=== PATIENT | female | born 1990 | race Caucasian/White ===

== ENCOUNTER 2016-05-03 15:48 | Emergency (ER) | payer OTHER ==
[~2016-05-03] VITALS: Ht 157.5 cm; Wt 61.2 kg
[2016-05-03 16:20] LABS: ABSOLUTE BASOPHIL COUNT 0 /CUMM (0.0-0.2); ABSOLUTE EOSINOPHIL COUNT 0.1 /CUMM (0.0-0.7); ABSOLUTE LYMPH COUNT 2.6 /CUMM (1.2-3.4); ABSOLUTE MONOCYTE COUNT 0.4 /CUMM (0.10-0.60); BASOPHIL % 0.4 % (0.0-2.0); EOSINOPHIL % 0.9 % (0-5); GRANULOCYTE % 65.4 % (42.2-75.2); HEMATOCRIT 44.9 % (37-47); MEAN CORPUSCULAR HGB 31.4 PG (27.0-31.0); MEAN CORPUSCULAR HGB CONC 34.1 G/DL (33.0-37.0); MEAN CORPUSCULAR VOLUME 91.9 FL (81.0-99.0); PLATELET COUNT 318 /CUMM (130-400); RED BLOOD CELL CT 4.88 /CUMM (4.20-5.40); WHITE BLOOD CELL COUNT 9.2 /CUMM (4.8-10.8)
--- NOTE | 2016-05-03 16:54 | ED GI/GU/ABDOMINAL COMPLAINT ---
History of Present Illness General Chief Complaint: Abdominal Pain/Flank Pain Stated Complaint: ABD PAIN,LATE ON MENSTRUAL,HX ECTOPIC Source: patient, family, old records Exam Limitations: no limitations Vital Signs & Intake/Output Vital Signs & Intake/Output Vital Signs Date Time Temp Pulse Resp B/P Pulse O2 O2 Flow FiO2 Ox Delivery Rate 05/03 1557 97.2 76 18 117/79 100 Room Air Allergies Coded Allergies: No Known Allergies (05/03/16) Reconcile Medications No Known Home Medications Triage Note: PT TO ED FOR PELVIC CRAMPING, REPORTS SHE IS CURRENTLY 9 DAYS LATE FOR HER PERIOD, TOOK TWO TESTS WHICH CAME BACK NEGATIVE (MOST RECENT ONE DAY). HX OF ECTOPIC IN 2015. Triage Nurses Notes Reviewed? yes ? n Is pt currently ? No HPI: Patient presents with right adnexal and suprapubic cramping that radiates back to past 5 days. The symptoms are constant. There are no activating or mitigating factors. Patient states that she is one week late on her menstrual period. She took a home test twice and they were both negative. Patient denies any nausea or vomiting. Patient does have a history of an ectopic 2 years ago. She rates the cramps as 6 out of 10. She denies any vaginal bleeding but has noticed a thin white vaginal discharge.. There is no dysuria. There is no diarrhea. Past History Travel History Traveled to [place] past 21 day No Medical History Any Pertinent Medical History? 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 No Review of Systems Review of Systems Constitutional: Reports: no symptoms. EENTM: Reports: no symptoms. Respiratory: Reports: no symptoms. Cardiovascular: Reports: no symptoms. GI: Reports: see HPI, abdominal pain. Genitourinary: Reports: no symptoms. Musculoskeletal: Reports: no symptoms. Skin: Reports: no symptoms. Neurological/Psychological: Reports: no symptoms. Hematologic/Endocrine: Reports: no symptoms. Immunologic/Allergic: Reports: no symptoms. All Other Systems: Reviewed and Negative Physical Exam Physical Exam General Appearance: well developed/nourished, alert, awake, mild distress Head: atraumatic Eyes: Bilateral: PERRL, EOMI. Ears, Nose, Throat, Mouth: hearing grossly normal, moist mucous membrane Neck: normal inspection, full range of motion Respiratory: normal breath sounds, chest non-tender, no respiratory distress, lungs clear Cardiovascular: regular rate/rhythm, normal peripheral pulses Gastrointestinal: normal bowel sounds, soft, no organomegaly, tenderness (RT ADNEXAL REGION) Pelvic: normal external exam, normal speculum exam, normal bimanual exam, no cerv. motion tender Back: normal inspection, normal range of motion, NO CVA TENDERNESS Extremities: normal range of motion Neurologic/Psych: no motor/sensory deficits, awake, alert, oriented x 3, normal gait, normal mood/affect Skin: intact, normal color, warm/dry Core Measures ACS in differential dx? No Severe Sepsis Present: No Septic Shock Present: No Progress Differential Diagnosis: appendicitis, ectopic , intrauterine , ovarian cyst, ovarian torsion, PID/cervicitis, threatened AB, UTI/pyelo Plan of Care: Orders Procedure Date/time Status TRICHOMONAS 05/03 1757 Complete POTASSIUM HYDROXIDE (TIFFANY) 05/03 1757 Complete GENITAL CULTURE 05/03 1757 Active CHLAMYDIA-GC DNA PROBE 05/03 1757 Active URINE 05/03 155 Complete URINALYSIS 05/03 155 Complete HUMAN BETA HCG TITRE 05/03 155 Complete COMPREHENSIVE METABOLIC PANEL 05/03 155 Complete CBC WITHOUT DIFFERENTIAL 05/03 1558 Complete Laboratory Tests 05/03/16 1608: Anion Gap 11, Estimated GFR > 60, BUN/Creatinine Ratio 15.0, Glucose 87, Calcium 10.8 H, Total Bilirubin 0.6, AST 26, ALT 34, Alkaline Phosphatase 55, Total Protein 8.8 H, Albumin 5.2 H, Globulin 3.6, Albumin/Globulin Ratio 1.4, Beta HCG, Quant < 2.4, CBC w Diff NO MAN DIFF REQ, RBC 4.88, MCV 91.9, MCH 31.4 H, RDW 13.0, MPV 8.0, Gran % 65.4, Lymphocytes % 28.6, Monocytes % 4.7, Eosinophils % 0.9, Basophils % 0.4, Absolute Granulocytes 6.0, Absolute Lymphocytes 2.6, Absolute Monocytes 0.4, Absolute Eosinophils 0.1, Absolute Basophils 0, PUBS MCHC 34.1, Urine Color YEL, Urine Clarity HAZY H, Urine pH 6.5, Ur Specific [place] 1.025, Urine Protein NEG, Urine Ketones NEG, Urine Nitrite NEG, Urine Bilirubin NEG, Urine Urobilinogen 1.0, Ur Leukocyte Esterase TRACE H, Ur Microscopic SEDIMENT EXAMINED, Urine RBC 1-3, Urine WBC 1-3 H, Ur Epithelial Cells MANY H, Urine Mucus MOD H, Urine Hemoglobin NEG, Urine Glucose NEG, Urine Test NEGATIVE Microbiology 05/03 1799 GENITAL: GC DNA Probe - RECD 05/03 1799 GENITAL: Chlamydia DNA Probe (RASHMI) - RECD 05/03 1799 GENITAL: ITFFANY Preparation - COMP 05/03 1799 GENITAL: Trichomonas Preparation - COMP 05/03 1799 GENITAL: Genital Culture - RECD Diagnostic Imaging: Viewed by Me: Ultrasound. Discussed w/RAD: Ultrasound. Radiology Impression: PATIENT: KASSIDY GILMORE PRESENT AGE: 26 PATIENT ACCOUNT NO: [id number] : 92 LOCATION: [facility] ORDERING PHYSICIAN: VENUS MATHEWS MD SERVICE DATE: 05/03/16 EXAM TYPE: US - US-TRANSVAGINAL EXAMINATIONS: ULTRASOUND PELVIC, COMPLETE AND DOPPLER INTERROGATION CLINICAL INFORMATION: Right-sided pelvic pain. Concern for torsion. COMPARISON: None. TECHNIQUE: Transabdominal and transvaginal imaging was performed. Transvaginal imaging was performed for further evaluation of the endometrium and adnexa. Doppler interrogation spectral analysis was performed. FINDINGS: The uterus is of normal size and echogenicity measuring 7.8 x 3.4 x 4.5 cm. A regular homogeneous endometrium is identified measuring 0.8 cm. The cervical length is 1.9 cm. Both ovaries are of normal size and echogenicity. The right measures 4.5 x 2.5 x 2.8 cm for a volume of 16.4 cc. This measurement includes an approximately 15 mm cyst. The left measures 3.2 x 2.2 x 2.8 cm for a volume of 10.5 cc. This measurement includes an approximately 3.7 cm cyst. Normal arterial and venous blood flow is present bilaterally. There is no pelvic free fluid. IMPRESSION: No evidence for ovarian torsion. Bilateral ovarian cysts. The largest is on the left measuring 3.7 cm. DICTATED BY: PAULA BAL MD DATE/TIME DICTATED:05/03/161809 [employer] TE[employer]ER:MARQUISE DATE/TIME TRANSCRIBED:05/03/161809 CONFIDENTIAL, DO NOT COPY WITHOUT APPROPRIATE AUTHORIZATION. <Electronically signed in Other Vendor System> SIGNED BY: PAULA BAL MD 05/03/161814 Initial ED EKG: none Departure Departure Disposition: HOME OR SELF CARE Condition: Stable Clinical Impression Primary Impression: Ovarian cyst Qualifiers: Laterality: right Qualified Code: N83.201 - Unspecified ovarian cyst, right side Referrals: PATIENT HAS NO PRIMARY CARE DR (PCP/Family) Additional Instructions: FOLLOW UP WITH YOUR GYNOCOLIGIST TAKE PERCOCET NEEDED RETURN IF SYMPTOMS WORSEN OR FOR ANY CONCERNS Departure Forms: Customer Survey General Discharge Information Prescriptions: Current Visit Scripts Oxycodone HCl/Acetaminophen (Percocet 5-325 MG Tablet) 1-2 TAB PO Q6P PRN PAIN #20 TAB
--- NOTE | 2016-05-03 18:15 | ULTRASOUND REPORT ---
EXAMINATIONS: ULTRASOUND PELVIC, COMPLETE AND DOPPLER INTERROGATION CLINICAL INFORMATION: Right-sided pelvic pain. Concern for torsion. COMPARISON: None. TECHNIQUE: Transabdominal and transvaginal imaging was performed. Transvaginal imaging was performed for further evaluation of the endometrium and adnexa. Doppler interrogation spectral analysis was performed. FINDINGS: The uterus is of normal size and echogenicity measuring 7.8 x 3.4 x 4.5 cm. A regular homogeneous endometrium is identified measuring 0.8 cm. The cervical length is 1.9 cm. Both ovaries are of normal size and echogenicity. The right measures 4.5 x 2.5 x 2.8 cm for a volume of 16.4 cc. This measurement includes an approximately 15 mm cyst. The left measures 3.2 x 2.2 x 2.8 cm for a volume of 10.5 cc. This measurement includes an approximately 3.7 cm cyst. Normal arterial and venous blood flow is present bilaterally. There is no pelvic free fluid. IMPRESSION: No evidence for ovarian torsion. Bilateral ovarian cysts. The largest is on the left measuring 3.7 cm.
[2016-05-03] MEDS ORDERED: PERCOCET 5-3251 EACH PO (18:27)
[2016-05-03 18:45] VITALS: BP 114/70
== END 2016-05-03 18:46 ==
LOC: ERH 15:48
PROVIDERS: Emergency Medicine
DX: N83.201 Unspecified ovarian cyst, right side (principal); N83.202 Unspecified ovarian cyst, left side
CPT/HCPCS: 87070; 81001; 81025; 87491; 87591